=== PATIENT | female | born 1970 | race Caucasian/White ===

== ENCOUNTER → 2021-12-15 | Outpatient (CLI) | payer OTHER ==
--- NOTE | 2021-12-15 17:51 | RAD ---
Three-view right foot HISTORY: Bruising and swelling and pain AP lateral oblique views There is mild bunion deformity. The remaining visualized osseous structures appear normal. IMPRESSION: No acute findings. Electronically signed by: Aries Moyer III, MD (12/15/2021 5:49 PM) [facility]
== END ==
LOC: PMG 17:08
PROVIDERS: ATTEND Nurse Practitioner Family
DX: S99.921A Unspecified injury of right foot, initial encounter (principal); M21.611 Bunion of right foot; X58.XXXA Exposure to other specified factors, initial encounter; Y93.89 Activity, other specified; Y92.89 Other specified places as the place of occurrence of the external cause; Y99.8 Other external cause status
CPT/HCPCS: 73630